=== PATIENT | female | born 1945 | race Caucasian/White ===

== ENCOUNTER → 2016-07-30 | Outpatient (CLI) | payer OTHER | LOC: CAT 14:50 | DX: R41.82 Altered mental status, unspecified (principal); R42 Dizziness and giddiness; R51 Headache ==

== ENCOUNTER → 2017-12-29 | Outpatient (CLI) | payer OTHER | LOC: ULTRA 08:12 | DX: N28.1 Cyst of kidney, acquired (principal); K76.0 Fatty (change of) liver, not elsewhere classified ==

== ENCOUNTER → 2018-06-08 | Outpatient (CLI) | payer OTHER | LOC: RAD 12:05 | DX: M25.562 Pain in left knee (principal); M25.561 Pain in right knee ==

== ENCOUNTER → 2018-08-17 | Outpatient (CLI) | payer OTHER ==
[2018-08-17 12:13] LABS: CALCIUM 9.3 mg/dL (8.5-10.1); CREATININE 0.8 mg/dL (0.6-1.0); POTASSIUM 3.8 mmol/L (3.5-5.1)
--- NOTE | 2018-08-18 08:33 | EKG ---
[place] [address] [facility] [place] [address] ELECTROCARDIOGRAM REPORT Name: RAJENDRA FRANK [facility] [id number] ������������������ Admission: 08/17/18 ������������������ Attend Phys: Physician not on staff Discharge: ������������������ Date of : 49 Report #: [id number] ����������������������������������������������������������������� [id number] THIS REPORT FOR: //name// [facility] Test Date: 2018-08-17 Test Time: 12:19:49 Pat Name: RAJENDRA FRANK Department: Room: Gender: F Lunchroom Attendant: Alexandra TIJERINA : 1945 Requested By: Physician staff Order Number: [id number] MD: Rashawn Go Measurements Intervals [place] Rate: 69 P: 43 MT: 162 QRS: -13 QRSD: 90 T: -7 QT: 418 QTc: 448 Interpretive Statements Sinus rhythm Atrial premature complex Abnormal R-wave progression, early transition Nonspecific ST segment abnormality No previous ECG available for comparison Electronically Signed On 08-18-2018 8:32:56 CDT by Rashawn Go [email or web address] ��������������������������������������������� <ELECTRONICALLY SIGNED> ���������������������������������������� By: Rashawn Go MD, [facility] ��������������������������������������������� 08/18/18 0832 1219 18 Rashawn Go MD, FACC /EPI
== END ==
LOC: CV 11:27
DX: Z01.818 Encounter for other preprocedural examination (principal); I10 Essential (primary) hypertension

== ENCOUNTER → 2019-01-05 | Outpatient (CLI) | payer OTHER | LOC: MRI 12:07 | DX: M22.41 Chondromalacia patellae, right knee (principal); M71.21 Synovial cyst of popliteal space [Baker], right knee ==

== ENCOUNTER → 2020-03-17 | Outpatient (CLI) | payer OTHER ==
[~2020-03-17] MED LIST: ADVAIR HFA 115-12 G1 INH; ALPRAZOLAM 0.0.25 M1 PO; AVAPRO75 MG PO; CARAFATE 11 GM/10 M1 PO; DYMISTA NASAL S23 GM NASAL; HYDROCHLOROTH12.5 M2 PO; LEXAPRO 10 MG T10 M2 PO; MULTIPLE VITAM1 EAC2 PO; OMEPRAZOLE40 MG PO; PRED FORTE 1% EY5 M1 OPHTHALMIC; PROAIR HFA8.5 GM INH; TOPAMAX50 MG PO
== END ==
LOC: LAB 08:47
PROVIDERS: ATTEND Orthopaedic Surgery Foot and Ankle Surgery
DX: Z01.812 Encounter for preprocedural laboratory examination (principal); Z20.822 Contact with and (suspected) exposure to COVID-19

== ENCOUNTER 2020-03-21 06:58 | Day surgery (SDC) | payer OTHER ==
[~2020-03-21] VITALS: Ht 165.1 cm; Wt 83.9 kg
--- NOTE | ~2020-03-21 | O ---
[facility] [place] [address] OPERATIVE REPORT Name: RAJENDRA FRANK Room #: 150-2 [facility]#: [id number] Admission: 03/21/20 Attend Phys: Paco Xie MD Discharge: Date of : 49 Report #: [id number] THIS REPORT FOR: cc: Cecilio Mejias MD, Neal A. MD Kneidel,Paco May MD ~ DATE OF SERVICE: 03/21/2020 PREOPERATIVE DIAGNOSIS: Left hallux valgus. POSTOPERATIVE DIAGNOSIS: Left hallux valgus. PROCEDURES: 1. Left foot Lapidus procedure with Lapiplasty. 2. Left foot modified Nova procedure. SURGEON: Dr. Paco Xie. SOFT CRAB SHEDDER: Kanika Muir. ANESTHESIA: General. ESTIMATED BLOOD LOSS: Minimal. DRAINS: No drains. TOURNIQUET TIME: One hour. DESCRIPTION OF PROCEDURE: The patient was brought to the operating room where she was placed under general anesthesia. Once under adequate general anesthesia, her left lower extremity was prepped and draped in sterile manner. The extremity was elevated, exsanguinated, tourniquet placed 300 mmHg. A dorsal incision of the first webspace was made approximately 2 cm in length. It was dissected down through soft tissue to the abductor tendon. This was then released off the lateral sesamoid complex and the proximal phalanx. The joint was then fenestrated with a [place] blade and then was able to be reduced. A dorsal incision was made over the first TMT joint. This was dissected down through the soft tissue to the dorsal first tarsometatarsal joint. The joint was released with a 15 blade, an osteotome and then a sagittal saw. It was then able to be rotated. The rotational pin was placed and through a dorsal incision over the second metatarsal, the compression clamp was placed. The bone cutting block was placed and noted to be in satisfactory alignment. Therefore, the bone cuts were made. These pieces of bone were then removed from the tarsometatarsal joint and the joint was fenestrated with a drill after being irrigated copiously. The compression was then placed across the joint and provisional [facility] [address] [place] [address] OPERATIVE REPORT Name: RAJENDRA FRANK AMRITA Room #: 150-2 [facility] M.R.#: [id number] Admission: 03/21/20 Attend Phys: Paco Xie MD Discharge: Date of : 49 Report #: [id number] fixation with compression all of the wire and a compression screw was then placed across the tarsometatarsal joint. Subsequent fixation with a dorsal and medial plate from the Lapiplasty set was then achieved. There did appear to be some instability in the intercuneiform joint, therefore, an intercuneiform screw was placed as well. Distally, a 2 cm incision was made over the metatarsal head. Dissection was carried down to this and the joint capsule was opened exposing the metatarsal head and medial prominence was excised with a sagittal saw to complete. The wounds were irrigated copiously and closed with 2-0 Ethibond in the capsular layer, 2-0 Vicryl in subcutaneous tissues and 3-0 nylon for the skin. The wound was dressed with Xeroform, 4 x 4s, and sterile soft compressive dressing was placed. Tourniquet was let down at approximately 1 hour. Toes pink and warm with good capillary refill. There were no complications from the procedure. The patient tolerated the procedure well and was taken to recovery room without incident. By: [id number] Paco Xie MD /nt
[2020-03-21 07:45] LABS: CALCIUM 9.2 mg/dL (8.5-10.1); CREATININE 0.8 mg/dL (0.6-1.0)
[2020-03-21 07:49] VITALS: BP 125/58
[2020-03-21 07:52] LABS: POTASSIUM 3.8 mmol/L (3.5-5.1)
[2020-03-21] MEDS ORDERED: PERCOCET 7.5-31 EAC1 PO (10:08)
[2020-03-21 10:43] VITALS: BP 125/58
--- NOTE | 2020-03-21 10:47 | EKG ---
[address] [address] ELECTROCARDIOGRAM REPORT Name: RAJENDRA FRANK Room #: 150-2 [facility]#: [id number] Admission: 03/21/20 Attend Phys: Paco Xie MD Discharge: Date of : 49 Report #: [id number] [facility] Test Date: 2020-03-21 Test Time: 07:36:16 Pat Name: RAJENDRA FRANK Department: Room: 150 2 Gender: F Electronics Mechanic: SHIN : 1945 Requested By: aPco Xie Order Number: [id number] MD: Jaron Box Measurements Intervals [place] Rate: 72 P: -7 VT: 167 QRS: -15 QRSD: 97 T: -8 QT: 443 QTc: 485 Interpretive Statements Sinus rhythm Left ventricular hypertrophy Borderline T abnormalities, inferior leads Compared to ECG 08/17/2018 12:19:49 Left ventricular hypertrophy now present T-wave abnormality now present Atrial premature complex(es) no longer present ST (T wave) deviation no longer present Electronically Signed On 03-21-2020 10:47:37 [employer] by Jaron Box [email or web address] <ELECTRONICALLY SIGNED> By: Jaron Box MD, FAC 03/21/20 1047 0736 Jaron Box MD, [facility] /EPI
== END 2020-03-21 11:55 | disposition home or self-care (01) ==
LOC: OR 06:58 → TBA 06:58 → OR 11:55
PROVIDERS: ATTEND Orthopaedic Surgery Foot and Ankle Surgery
DX: M20.12 Hallux valgus (acquired), left foot (principal); I10 Essential (primary) hypertension; Z90.710 Acquired absence of both cervix and uterus; Z88.6 Allergy status to analgesic agent; G43.909 Migraine, unspecified, not intractable, without status migrainosus; J45.909 Unspecified asthma, uncomplicated
CPT/HCPCS: 50010; 50101; 50386; 56524; 56526; 56527; 57091; 57180; 57910; 57946; 57947; 62110; 62900; 64039; 65003; 70005

== ENCOUNTER → 2020-08-18 | Outpatient (CLI) | payer OTHER ==
[~2020-08-18] MED LIST changes: +CARAFATE1 GM PO; +FLONASE 0.05%50 MCG NASAL; +PERCOCET 7.5-31 EAC1 PO
[2020-08-18 15:18] LABS: HEMATOCRIT 43.5 % (37.0-47.0); HEMOGLOBIN 14.4 gm/dL (12.0-15.0); MCH 32.7 pg (26.0-34.0); MCHC 33.1 g/dL (28.0-37.0); MCV 98.9 fL (80.0-100.0); RBC 4.4 mil/uL (4.20-5.00); RDW 13.5 % (10.5-14.5); WBC 8.2 thou/uL (4.0-11.0)
[2020-08-18 15:19] LABS: URINE BILIRUBIN NEGATIVE (Negative); URINE BLOOD NEGATIVE (Negative); URINE CLARITY CLEAR; URINE COLOR YELLOW; URINE GLUCOSE-RANDOM* NEGATIVE (Negative); URINE KETONES NEGATIVE (Negative); URINE LEUKOCYTES-REFLEX NEGATIVE (Negative); URINE NITRITE-REFLEX NEGATIVE (Negative); URINE PROTEIN (DIPSTICK) NEGATIVE (Negative); URINE UROBILINOGEN 0.2 E.U./dl (0.2-1.0)
[2020-08-18 15:31] LABS: ALBUMIN 3.4 g/dL (3.4-5.0); CALCIUM 8.9 mg/dL (8.5-10.1); CREATININE 0.9 mg/dL (0.6-1.0); POTASSIUM 3.6 mmol/L (3.5-5.1)
[2020-08-18 15:33] LABS: INR 0.96; PROTIME 10.5 Seconds (10.5-12.1)
== END ==
LOC: PAC 05:57
PROVIDERS: ATTEND Orthopaedic Surgery
DX: Z01.812 Encounter for preprocedural laboratory examination (principal); M17.12 Unilateral primary osteoarthritis, left knee

== ENCOUNTER 2020-09-04 07:34 | Observation (INO) | payer OTHER ==
[2020-09-04] VITALS (9 sets, daily range): BP systolic 92–132; BP diastolic 49–67
[~2020-09-04] VITALS: Ht 165.1 cm; Wt 87.2 kg
--- NOTE | ~2020-09-04 | O ---
[facility] [place] [address] OPERATIVE REPORT Name: RAJENDRA FRANK Room #: 437-P [facility] M.R.#: [id number] Admission: 09/04/20 Attend Phys: Donte Segovia MD Discharge: Date of : 49 Report #: [id number] THIS REPORT FOR: cc: Cecilio Mejias MD, Neal A. MD Abraham,Donte Medina MD ~ DOC #: [id number] Donte Segovia MD DATE OF SERVICE: 09/04/2020 PREOPERATIVE DIAGNOSIS: Left knee osteoarthritis. POSTOPERATIVE DIAGNOSIS: Left knee osteoarthritis. PROCEDURE: Left total knee arthroplasty using Navio robotic assistance. SURGEON: Donte Segovia MD. MANAGER UTILIZATION REVIEW: Pinky Kaur PA-C. INDICATION FOR MANAGER UTILIZATION REVIEW: Throughout the case, extensive retraction and manipulation of the knee was required. This was afforded to me by my employee relations assistant. ANESTHESIA: LMA with adductor canal block. IMPLANTS: A [employer] size 4 Journey II BCS cobalt chrome femur, size 3 tibia, size 32 patella and a 10 constrained polyethylene. TOURNIQUET TIME: 47 minutes. ESTIMATED BLOOD LOSS: 25 mL. COMPLICATIONS: None. SPECIMENS: None. CONDITION UPON LEAVING THE OR: Stable. INDICATIONS FOR PROCEDURE: The patient is a 74-year-old female with left knee osteoarthritis. She had failed conservative measures for this and after discussion with her, she elected for left total knee arthroplasty. DESCRIPTION OF PROCEDURE: Risks, benefits, alternatives, complications were discussed in detail with the patient including but not limited to risk of anesthesia, risk of damage to nerves, arteries, blood vessels, risk for infection, bleeding, risk for continued knee pain, need for reoperation, DVT, [facility] [address] [address] OPERATIVE REPORT Name: RAJENDRA FRANK AMRITA Room #: 437-P [facility] M.R.#: [id number] Admission: 09/04/20 Attend Phys: Donte Segovia MD Discharge: Date of : 49 Report #: [id number] PE. Informed consent was obtained from the patient. The left knee was appropriately marked in the preoperative holding area. IV Ancef was given for preoperative antibiotics. She was brought to the operating room and placed in supine position on the operating room table. LMA anesthesia was induced without complication. Tourniquet was placed on the left thigh. Left lower extremity was prepped and draped in normal sterile fashion. Timeout was performed properly identifying the patient and procedure as well as the instrumentation and implants, all in the operating room in agreement. Left lower extremity was exsanguinated, tourniquet was inflated. Tourniquet time was 47 minutes. Standard midline approach to knee was made with 10 blade through the skin. Dissection was taken down sharply to the fascia and deep flaps were developed medially and laterally. Fresh 10 blade was used to make a medial parapatellar arthrotomy and the knee was inspected. There was moderate tricompartmental osteoarthritis. ACL and PCL were removed sharply. Reference pins were placed in the femur and the tibia. The knee was then digitally mapped using the [employer] robotic system. Intraoperative plan was made and we sized the size 4 femur, size 3 tibia and a 10 spacer. After acceptance of the intraoperative plan, the distal femoral cut was made with Navio bur. Distal femoral cutting block was pinned in place and chamfer cuts were made. Attention was turned to the tibia. Remainder of the menisci removed with Bovie cautery. Tibial resection guide was pinned in place using Navio for placement and tibial resection was made. Flexion and extension gaps were checked and found to have good balance medially and laterally in flexion and extension. Tibia sized, found to be a size 3. Size 3 tibial trial was placed, pinned and punched. Size 4 femoral trial was placed and the box cut was made. This was then trialed with a 10 polyethylene. The 10 polyethylene demonstrated good stability laterally with 1 mm of laxity throughout range of motion. Medially, she did demonstrate up to 2 mm of laxity. Medially, it was felt we could make up for this with a constrained implant. A 9 mm of bone was resected from the posterior surface of the patella and a size 32 patellar trial button was placed. Knee was taken through range of motion, found to be stable, found to have good patellar tracking. Trial components were removed. Bone ends were thoroughly irrigated with normal saline. Final size 3 tibia, size 4 Journey II BCS cobalt chrome femur and a size 32 patella were cemented in place using standard cementation techniques. While the cement cured, a periarticular injection consisting of morphine, ropivacaine, epinephrine, Toradol was placed around the knee joint capsule. After the cement cured, tourniquet was deflated. Hemostasis was obtained with Bovie cautery. Final size 10 constrained polyethylene was placed. A gram of vancomycin was placed deep in the joint. Fascia was closed with 0 Vicryl. Skin was closed with 2-0 Vicryl, 3-0 Monocryl. Dermabond and a WILD dressing was applied. The patient tolerated this procedure well and went to recovery room under care of Anesthesia postoperatively. Donte Segovia MD [facility]/[address] [address] OPERATIVE REPORT Name: RAJENDRA FRANK Room #: 437-P [facility].R.#: [id number] Admission: 09/04/20 Attend Phys: Donte Segovia MD Discharge: Date of : 49 Report #: [id number] By: [id number] Donte Segovia MD /nt
[2020-09-05 01:23] VITALS: BP 114/49
[2020-09-05 07:30] VITALS: BP 116/67
[2020-09-05 08:34] VITALS: BP 116/67
== END 2020-09-05 13:26 | disposition home or self-care (01) ==
LOC: OR → TBA 07:34 → OR 07:34 → TBA 07:36 → OR 11:56 → 4S 12:47 → OR 12:52 → 4S 19:12 → OR 19:12 → 4S 09-05 13:26
PROVIDERS: ADMIT Orthopaedic Surgery; ATTEND Orthopaedic Surgery
DX: M17.12 Unilateral primary osteoarthritis, left knee (principal)
CPT/HCPCS: 50010; 50101; 50415; 50954; 51130; 51225; 51320; 53000; 53078; 53365; 54118; 56527; 56528; 57095; 57103; 57110; 57127; 57180; 62110; 62900; 70005